=== PATIENT | female | born 1970 | race Caucasian/White ===

== ENCOUNTER → 2024-03-22 14:58 | Outpatient (REF) | payer OTHER, SELFPAY ==
--- NOTE | 2024-03-22 15:09 | CA_ITS ---
Transthoracic Echocardiogram Patient (Last, First, Middle): Joslyn Coleman T Gender: Female Date of : 1970 Age: 53 Procedure Date: 03/22/2024 Procedure Type: Transthoracic Echocardiogram Location: OP Height: 165.1 cm Weight: 86.18 kg BSA: 1.94 m2 Heart Rate: bpm BP: 110 / 80 mmHg Primary Health Care Nurse: TO Referring MD: Parvez Knight DO Symptoms: ABN RESULT OF OTHER CARDIOVAS. FUNCTION Study Quality: Adequate with contrast ECG Rhythm: Sinus Conclusions: - The left ventricular systolic function is normal. The calculated ejection fraction is 60% by biplane method. - No obvious valvular pathology seen on this study. Findings Procedure Information Contrast agent, definity, is being given per protocol without apparent complications. Left Ventricle Normal left ventricular cavity size. There is normal left ventricular wall thickness. The left ventricular systolic function is normal. The calculated ejection fraction is 60% by biplane method. There is no evidence of regional wall motion abnormalities. Diastolic function is normal for age. Right Ventricle Normal right ventricular cavity size and systolic function. Atria Both atria are normal in size. Aortic Valve There is a normal trileaflet aortic valve. There is no aortic valve stenosis. There is no aortic valve regurgitation. Mitral Valve There is mild anterior mitral leaflet thickening. There is trace mitral valve regurgitation. There is no mitral valve stenosis. Pulmonic Valve The pulmonic valve is likely normal. Tricuspid Valve There is trace tricuspid valve regurgitation. There is no evidence of pulmonary hypertension. Great Vessels The asc aorta is normal in size. Venous The inferior vena cava is normal in size and collapses greater than 50% with inspiration. Pericardium/Pleural There is no evidence of pericardial effusion. Prior Study Comparison No prior study available for comparison. Recommendations, Care & Conclusions No obvious valvular pathology seen on this study. Measurements 2D Linear Measurements IVSd: 0.97 0.6-0.9/0.6-1.0 cm LVIDd: 4.57 3.9-5.3/4.2-5.9 cm LVIDd Index: 2.36 2.4-3.2/2.2-3.1 cm/m2 LVIDs: 3.04 2.0-3.6 cm LVPWd: 0.74 0.7-1.1 cm LA Diam: 3.10 2.7-3.8/3.0-4.0 cm LAIDs Index: 1.60 1.5-2.3 cm/m2 LV Mass: 157.83 67-162/88-224 g LV Mass Index: 81.35 43-95/49-115 g/m2 LVOT Diam: 2.10 3.0+(-)1.3 cm 2D Systolic Function EF 4C: 65.60 >55% EF 2C: 52.60 >55% EF BiP: 59.80 >55% Mitral Valve MV Pk E: 0.68 MV PK A: 0.76 MV Decel Time: 163.00 E/A: 0.90 E'Lateral: 8.27 E'Medial: 6.74 E/E' Med: 10.00 E/E' Lat: 8.20 PHT: 48.00 MVA PHT: 4.58 Decel [place]: 4.15 Aortic Valve AoV Pk Reese: 1.25 AoV Mn Reese: 0.88 AoV VTI: 0.21 AoV Pk Grad: 6.00 Aov Mn Grad: 3.00 PEMA Cont.VTI: 2.46 LVOT LVOT Pk Reese: 0.80 LVOT Mn Reese: 0.50 LVOT VTI: 0.15 LVOT Pk Grad: 3.00 LVOT Mn Grad: 1.00 LVOT Diam: 2.10 LVOT Area: 3.46 Diastolic Function MV Pk E: 0.68 MV Pk A: 0.76 E/A: 0.90 E'Medial: 6.74 E/E' Med: 10.00 E' Laterial: 8.27 E/E' Lat: 8.20 Right Ventricle TAPSE (mm): 17.40 TVS' Reese: 12.80 Tricuspid Valve TR Pk Reese: 1.60 TR Pk Grad: 10.00 RA Press: 3.00 RVSP: 13.00 Great Vessels Aorta Sinus of Valsalva: 3.70 2.0-3.5 cm Ao Asc: 3.30 2.1-3.4 cm Updated in Other Vendor System with Status of Final Gilbert Gomez MD electronically signed on 03/23/2024 5:49:02 PM with status of Final
== END ==
LOC: HO.CARD 14:58
PROVIDERS: PCP Hospitalist; Visit Provider Hospitalist
DX: R94.39 Abnormal result of other cardiovascular function study (principal)
CPT/HCPCS: 93306; Q9957

== ENCOUNTER → 2024-03-22 15:09 | Outpatient (BNV) | payer OTHER, SELFPAY | PROVIDERS: PCP Hospitalist; Visit Provider Internal Medicine | DX: R94.31 Abnormal electrocardiogram [ECG] [EKG] (principal) | CPT/HCPCS: 93306 ==